=== PATIENT | male | born 1985 | race African-American/Black ===

== ENCOUNTER 2017-01-04 04:57 | Emergency (ER) | payer OTHER ==
[~2017-01-04] VITALS: Ht 177.8 cm; Wt 95.3 kg
[2017-01-04] MEDS ORDERED: IPRATROPIUM 0.5MG/ALBUTEROL 2.5MG INH SOL UD 3ML (DUONEB)(J7620) NEB ONE (07:15)
[2017-01-04] MEDS ORDERED: ACETAMINOPHEN 325 MG TAB PO ONE (07:15)
[2017-01-04] MEDS ORDERED: ALBUTEROL 90 MCG/ACT 8GM HFA INHALER INH ONE (07:15)
[2017-01-04] MEDS ORDERED: ZITHTAB PO (08:01)
[2017-01-04 08:09] VITALS: BP 148/70
--- NOTE | 2017-01-04 10:03 | REP ---
CHEST PA AND LATERAL: 01/04/2017. Comparison: 07/26/2016. Clinical history: Cough. Findings: Two-view show the lungs well inflated and without infiltrate, effusion, atelectasis or mass. The heart, mediastinal and hilar contours are normal. Funmilayo and aortic margins were normal. The airway is intact. Bony thorax unremarkable. No free air. Impression: 1. No acute cardiopulmonary change. Signed by Timmy Galaviz MD 01/04/2017 05:11 P
== END 2017-01-04 08:10 | disposition home or self-care (01) ==
LOC: M ED 07:58
DX: J45.901 Unspecified asthma with (acute) exacerbation (principal); J20.9 Acute bronchitis, unspecified; Z88.0 Allergy status to penicillin; Z87.891 Personal history of nicotine dependence

== ENCOUNTER → 2017-03-24 | Outpatient (CLI) | payer OTHER ==
[~2017-03-24] MED LIST: ZITHTAB PO
--- NOTE | 2017-03-24 19:34 | REP ---
Right ankle series: Four views: History: Injury. Findings: There is anterolateral soft tissue swelling. The lateral radiograph demonstrates a fracture fragment parallel to the posterior cortex of the tibia. This is not seen on any other view. A posterior tibial fracture must be suspected. Ankle mortise is intact. No other fracture is seen. Impression: Bony fragment seen on lateral film parallel to the posterior tibia most likely represents an acute fracture although it is not visible on any other projection. Anterolateral soft-tissue swelling. Signed by Den Travis MD 03/24/2017 08:29 P
== END ==
LOC: M LRY 18:45
PROVIDERS: ATTEND Nurse Practitioner Family
DX: S99.911A Unspecified injury of right ankle, initial encounter (principal); W18.30XA Fall on same level, unspecified, initial encounter; Y92.009 Unspecified place in unspecified non-institutional (private) residence as the place of occurrence of the external cause; Y93.9 Activity, unspecified; Y99.8 Other external cause status
CPT/HCPCS: 73610; 96372; G0463; J1885